=== PATIENT | male | born 1960 | race Caucasian/White ===

== ENCOUNTER 2019-09-01 12:00 | Day surgery (SDC) | payer BC, SELFPAY ==
[2019-09-01 12:52] VITALS: BP 156/92; PULSE 87; RESP 15; TEMP 36.2; O2SAT 98; BMI 25.5
[2019-09-01] MEDS: SODIUM CHLORIDE 0.9% 1,000 ML 200 ML IV (13:01)
--- NOTE | 2019-09-01 13:36 | PM.HP.1 ---
History of Present Illness History of Present Illness Date Patient Seen: 09/01/19 Time Patient Seen: 13:36 Chief complaint: [id number] SCREENING COLONOSCOPY Narrative: Patient presents for colorectal screening. They had a prior colonoscopy normal 15 years ago. On further history denies any recent gastrointestinal symptoms. No nausea, vomiting, abdominal pain, loss of appetite, unexplained weight loss, change in bowel habits, diarrhea, constipation, melena, hematochezia, or bright red blood per rectum. Patient History Surgical History History of total right knee replacement (Acute) Social History marital status: household members: spouse occupational status: employed Smoking Status: Current every day smoker alcohol intake: current substance use type: does not use Family & Social History Social History: household members spouse Tobacco & Substance use: Smoking Status Current every day smoker alcohol intake current Meds Home Medications and Allergies Home Medications Medication Instructions Recorded Confirmed Type indomethacin 25 mg capsule 25 mg PO BID 07/27/19 09/01/19 History Allergies Allergy/AdvReac Type Severity Reaction Status Date / Time No Known Drug Allergies Allergy Verified 09/01/19 12:51 Review of Systems Review of Systems ROS Unobtainable: All systems reviewed & are unremarkable except as noted in HPI and below Exam Vital Signs (past 8 hours): - 09/01/19 12:52 Temperature 97.2 F L Pulse Rate 87 Respiratory Rate 15 Blood Pressure 156/92 H Pulse Oximetry 98 Oxygen Delivery Method Room Air Narrative Exam Narrative: General-no acute distress, well nourished HEENT-moist mucous membranes, no scleral icterus Neck-supple, no lymphadenopathy Chest- non labored respirations, clear to auscultation bilaterally Cardiac-regular rate no peripheral edema Abdomen-soft, nontender, non distended Extremities-warm, well perfused Neurological-alert and oriented, no focal deficits Assessment & Plan Assessment and plan (1) Screening for colon cancer: Current visit: Yes Status: Acute Assessment & Plan narrative: The patient requires colorectal screening and colonoscopy is recommended. Technical details were discussed. Risks, benefits, alternatives explained. Risks including but not limited to myocardial infarction, aspiration, bleeding, pain, missed lesion, incomplete examination, need for further radiographic studies, colonic perforation, and need for major abdominal surgery were discussed. All questions were answered to their satisfaction, and they are in agreement with this plan.
[2019-09-01 13:59] VITALS: BP 130/91; PULSE 82; RESP 15; TEMP 36.4; O2SAT 96
[2019-09-01] MEDS: MIDAZOLAM 5 MG/5 ML VIAL IV (13:59)
[2019-09-01] MEDS: fentaNYL 250 MCG/5 ML INJ IV (13:59)
[2019-09-01 14:04] VITALS: BP 147/98; PULSE 88; RESP 16; O2SAT 97
[2019-09-01 14:10] VITALS: BP 148/92; PULSE 83; RESP 22; TEMP 36.5; O2SAT 95
--- NOTE | 2019-09-01 14:14 | PM.OP.ENDO ---
Operative Date/Time/Diagnoses Date of procedure: 09/01/19 Time of procedure: 14:14 Pre-op diagnosis: screening colonoscopy Post-op diagnosis: same Procedure & Clinicians Study performed: Colonoscopy Same procedure as scheduled: Yes Indications: 59-year-old male with previous colonoscopy 15 years ago presents for screening. Surgeon: Ramesh Snyder Procedure Notes SCOAP/Timeout: Performed Procedure in detail: Patient placed in left lateral decubitus position. Time out was performed. Procedural sedation was administered with Versed and Fentanyl. A rectal exam demonstrated no external hemorrhoids no internal masses. Colonoscopy scope was placed into the rectum and advanced through the colon to the cecum. The ileocecal valve was identified. The scope was then slowly withdrawn examining colon thoroughly in all directions. The colonoscopy was normal, there were no masses polyps colitis. The colon was notable for garcia diverticulosis. The scope was retroflexed within the rectum demonstrated grade 1 internal hemorrhoids. The rectum was desufflated and the scope removed. Patient tolerated procedure well. Scope withdrawal time: 6 Sedation minutes: 20 Findings: diverticulosis and internal hemorrhoids Impression: diverticulosis Post-procedure Recommendations: Colonscopy in 10 years Disposition: same day surgery
[2019-09-01 14:27] VITALS: BP 134/86; PULSE 88; RESP 16; TEMP 36.8; O2SAT 97
== END 2019-09-01 14:42 | disposition home or self-care (01) ==
PROVIDERS: PCP Family Medicine; Visit Provider Surgery
PROC: 0DJD8ZZ Inspection of Lower Intestinal Tract, Via Natural or Artificial Opening Endoscopic (ICD-10-PCS; CPT 45378; principal; 2019-09-01 13:45)
DX: Z12.11 Encounter for screening for malignant neoplasm of colon (principal); F17.210 Nicotine dependence, cigarettes, uncomplicated; K57.30 Diverticulosis of large intestine without perforation or abscess without bleeding; K64.0 First degree hemorrhoids
CPT/HCPCS: 45378; 99152; J2250; J3010

== ENCOUNTER → 2019-09-16 10:16 | Outpatient (CLI) | payer BC, SELFPAY ==
--- NOTE | 2019-09-16 | DI.RAD.S_ITS ---
PROCEDURE: XR HAND RT MIN 3V INDICATIONS: BI HAND PAIN X 5 YRS / POSS RHEUM ARTHRITIS TECHNIQUE: 3 views of the hand(s) acquired. COMPARISON: None. FINDINGS: Bones: No fractures or dislocations. Questionable posttraumatic deformity of the distal fifth metacarpal although technically indeterminate No marginal lucency is identified. Diffuse interphalangeal joint degeneration. First CMC and triscaphe joint degeneration , mild. Severe second MCP joint degeneration. Carpal bones are normally aligned. No suspicious bony lesions. Soft tissues: No suspicious soft tissue calcifications. IMPRESSION: Scattered degenerative changes as above. No marginal lucencies to suggest erosions identified. Dictated by: Wade Richmond M.D. on 09/16/2019 at 11:50 Approved by: Wade Richmond M.D. on 09/16/2019 at 11:53
--- NOTE | 2019-09-16 | DI.RAD.S_ITS ---
PROCEDURE: XR HAND LT MIN 3V INDICATIONS: BI HAND PAIN X 5 YRS / POSS RHEUM ARTHRITIS TECHNIQUE: 3 views of the hand(s) acquired. COMPARISON: [facility], CR, XR HAND RT MIN 3V, 09/16/2019, 10:18. FINDINGS: Bones: No acute fractures or dislocations. Chronic appearing posterior mild deformity of the third and fourth metacarpals. Diffuse interphalangeal joint degeneration. Severe second MCP osteoarthritis. First CMC and triscaphe joint degeneration , moderate-severe. Questionable hooklike osteophyte appearance of the second and third metacarpal heads. Periarticular calcification at the third MCP joint. Chronic appearing ulnar styloid fracture fragment versus loose body Carpal bones are normally aligned. No suspicious bony lesions. Soft tissues: No suspicious soft tissue calcifications. 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 No marginal lucencies to suggest erosions identified. Questionable hooklike osteophytes at the second and third MCP joints raising the possibility of deposition arthropathy Small ossicle at the tip of the ulnar styloid as above. Dictated by: Wade Richmond M.D. on 09/16/2019 at 11:53 Approved by: aWde Richmond M.D. on 09/16/2019 at 11:55
== END ==
PROVIDERS: PCP Student in an Organized Health Care Education/Training Program; Visit Provider Student in an Organized Health Care Education/Training Program
DX: M79.642 Pain in left hand (principal); M79.641 Pain in right hand; M19.042 Primary osteoarthritis, left hand; M19.041 Primary osteoarthritis, right hand; M18.0 Bilateral primary osteoarthritis of first carpometacarpal joints
CPT/HCPCS: 73130

== ENCOUNTER → 2019-10-24 13:12 | Outpatient (CLI) | payer BC, SELFPAY ==
--- NOTE | 2019-10-24 13:45 | DI.CT.S_ITS ---
PROCEDURE: CT ABDOMEN W CON INDICATIONS: verify blood flow in non reducible hernia TECHNIQUE: After the administration of oral and intravenous contrast, 5 mm thick sections acquired from the diaphragms to the iliac crests. 5 mm thick coronal and sagittal reformats were acquired. For radiation dose reduction, the following was used: automated exposure control, adjustment of mA and/or kV according to patient size. COMPARISON: None. FINDINGS: Image quality: Excellent. Lung bases: Lung bases are clear. Heart size is normal. Solid organs: Liver is normal in size. Probable hepatic steatosis. Gallbladder is unremarkable. Biliary system is non dilated. Pancreas enhances normally. Spleen is normal in size and enhancement. No adrenal nodules. Kidneys are normal in size, without hydronephrosis. Peritoneum and bowel: Contrast enhanced bowel loops appear normal in caliber. Diverticulosis. Appendix is probably visualized and normal in caliber. No free fluid or air. Nodes and vessels: No retroperitoneal or mesenteric adenopathy by size criteria. Aorta and inferior vena cava are normal in size. Bones: No suspicious bony lesions. Moderate degenerative change at L3-L4 with loss of intervertebral disc space height. No vertebral body compression fractures. Miscellaneous: Fat-containing periumbilical hernia. The hernia neck measures approximately 1.8 cm. There is mild stranding in the hernia sac. No comparison available. No fluid. IMPRESSION: Moderate-sized fat-containing periumbilical hernia. No fluid collection. Mild nonspecific stranding in the hernia sac. Acute inflammatory change and fat necrosis are felt to be less likely. Comparison with prior cross sectional imaging of the hernia would be helpful to evaluate for change. Dictated by: Daron Almeida M.D. on 10/24/2019 at 14:10 Approved by: Daron Almeida M.D. on 10/24/2019 at 14:18
== END ==
PROVIDERS: PCP Student in an Organized Health Care Education/Training Program; Visit Provider Student in an Organized Health Care Education/Training Program
DX: K42.0 Umbilical hernia with obstruction, without gangrene (principal)
CPT/HCPCS: 74160; Q9967

== ENCOUNTER → 2021-02-15 08:30 | Outpatient (CLI) | payer BC, SELFPAY ==
[2021-02-15] MEDS: COVID-19 VACC #1, MRNA(MOD) 100 MCG/0.5 ML VIAL IM (08:36)
== END ==
PROVIDERS: PCP Student in an Organized Health Care Education/Training Program; Visit Provider Internal Medicine
DX: Z23 Encounter for immunization (principal)
CPT/HCPCS: 0011A; 91301

== ENCOUNTER → 2021-03-15 08:21 | Outpatient (CLI) | payer BC, SELFPAY ==
[2021-03-15] MEDS: COVID-19 VACC #2, MRNA(MOD) 100 MCG/0.5 ML VIAL IM (08:26)
== END ==
PROVIDERS: PCP Student in an Organized Health Care Education/Training Program; Visit Provider Internal Medicine
DX: Z23 Encounter for immunization (principal)
CPT/HCPCS: 0012A; 91301

== ENCOUNTER → 2023-02-13 15:05 | Outpatient (CLI) | payer BC, SELFPAY ==
--- NOTE | 2023-02-13 | DI.RAD.S_ITS ---
PROCEDURE: XR HAND LT MIN 3V INDICATIONS: PAIN IN LEFT HAND TECHNIQUE: 3 views of the hand(s) acquired. COMPARISON: [facility], CR, XR HAND LT MIN 3V, 09/16/2019, 10:20. [facility], CR, XR HAND RT MIN 3V, 09/16/2019, 10:18. FINDINGS: Bones: No fractures or dislocations. Carpal bones are normally aligned. No suspicious bony lesions. Interphalangeal joint space narrowing with associated osteophytosis. First CMC joint space narrowing with osteophytosis, subchondral sclerosis. Soft tissues: No suspicious soft tissue calcifications. IMPRESSION: 1st CMC and interphalangeal osteoarthritis, within normal limits for age. Dictated by: Santy Denis M.D. on 02/13/2023 at 15:59 Approved by: Santy Denis M.D. on 02/13/2023 at 16:00
== END ==
PROVIDERS: PCP Family Medicine; Referring Provider Family Medicine; Visit Provider Family Medicine
DX: M19.042 Primary osteoarthritis, left hand (principal); M79.642 Pain in left hand
CPT/HCPCS: 73130

== ENCOUNTER → 2023-07-17 16:18 | Outpatient (CLI) | payer BC, SELFPAY ==
--- NOTE | 2023-07-17 16:20 | DI.RAD.S_ITS ---
PROCEDURE: XR HIP W PEL IF DONE RT 2V INDICATIONS: R hip pain TECHNIQUE: AP pelvis with lateral view(s) of the right hip(s). COMPARISON: None. FINDINGS: Bones: No fractures or dislocations. Moderate bilateral hip joint osteoarthritic changes are seen with superior joint space narrowing, subchondral sclerosis and marginal osteophyte formation. No evidence of avascular necrosis of femoral head. Pelvic ring appears intact. No suspicious bony lesions. Soft tissues: The visualized bowel gas pattern is normal. No suspicious soft tissue calcifications. IMPRESSION: Moderate bilateral hip joint osteoarthritis slightly worse on the right side. No fracture or dislocation. No evidence of avascular necrosis. Dictated by: Nikhil Wagner M.D. on 07/17/2023 at 17:06 Approved by: Nikhil Wagner M.D. on 07/17/2023 at 17:07
== END ==
PROVIDERS: PCP Family Medicine; Referring Provider Family Medicine; Visit Provider Family Medicine
DX: M16.0 Bilateral primary osteoarthritis of hip (principal); M25.551 Pain in right hip
CPT/HCPCS: 73502

== ENCOUNTER → 2023-12-22 16:43 | Outpatient (CLI) | payer BC, SELFPAY ==
--- NOTE | 2023-12-22 | DI.US.S_ITS ---
PROCEDURE: US EXTREMITY NONVASC LOWER LT INDICATIONS: LEFT POPLITEAL FOSSA LUMP WITH PAIN TECHNIQUE: Real-time scanning was performed of the left knee, with image documentation. COMPARISON: None. FINDINGS: Focused ultrasound examination of posterior left knee shows no soft tissue mass or fluid collection. The visualized popliteal vein is patent and show no intraluminal filling defect. IMPRESSION: No abnormality is seen in left popliteal fossa. Dictated by: Nikhil Wagner M.D. on 12/22/2023 at 17:14 Approved by: Nikhil Wagner M.D. on 12/22/2023 at 17:15
== END ==
LOC: US 16:43
PROVIDERS: PCP Family Medicine; Referring Provider Family Medicine; Visit Provider Family Medicine
DX: M25.562 Pain in left knee (principal); R22.9 Localized swelling, mass and lump, unspecified
CPT/HCPCS: 76882

== ENCOUNTER → 2024-01-08 19:26 | Outpatient (CLI) | payer BC, SELFPAY ==
--- NOTE | 2024-01-08 | DI.MRI.S_ITS ---
PROCEDURE: MR KNEE LT WO CON INDICATIONS: left knee pain TECHNIQUE: Noncontrast sagittal PD fast spin echo and T2 fast spin echo with fat saturation, sagittal 3-D FLASH with fat saturation; coronal T1 spin echo and PD fast spin echo with fat saturation, and axial PD fast spin echo with fat saturation through the knee. COMPARISON: None. FINDINGS: Image quality: Diagnostic Menisci: Medial: Free edge truncation of the medial meniscus, and a complex tear extending from the free edge nerve periphery is seen, starting from the anterior horn, also involving the body. There is partial extrusion. Lateral: horizontal tear primary involves the anterior horn Cruciate ligaments: T2 signal abnormality of the ACL likely related to mucoid degeneration. The PCL is intact. Medial structures: MCL: Mild periligamentous edema Pes anserine tendons: [id number] bursitis Semimembranosus: Egkr-xi-[id number] insertional tendinopathy Lateral structures: LCL: [id number]-mk-[id number] periligamentous edema and proximal signal abnormality. Biceps femoris: Mild insertional tendinopathy and possible partial thickness tear IT band: Intact Popliteus tendon: Mild insertional tendinopathy. Tenosynovitis in the mid tendon. Anterior structures: Extensor mechanism: Intact Fat pads: Mild prepatellar and Hoffa's fat pad edema Medial retinaculum: Intact. Trochlea: Unremarkable morphology. Bone and joint: Bones: Possible nondisplaced fracture of the fibular head, with mild edema Cartilage: Full-thickness cartilage loss of most of the medial compartment, with subchondral edema involving the femoral condyle and tibial plateau. Suspected subchondral geode is seen in the lateral femoral condyle. Moderate heterogeneity also seen in the lateral compartment. Full-thickness fissuring with subchondral edema is seen in the lateral facet of the patella. Moderate heterogeneity overall in the patellofemoral compartment. Multifocal osteophytes. Joint space: Mild joint effusion and evidence of synovitis. Murry's cyst: Moderate Murry's cyst Soft tissues: Diffuse mild soft tissue swelling. There are ganglion cysts adjacent to the posterior lateral capsule. IMPRESSION: Complex tear of the medial meniscus. Horizontal lateral meniscus tear. Suspected mucoid degeneration of the ACL and possible reactive edema versus sprains of the LCL and MCL. No full-thickness defect of the cruciate or collateral ligaments. Moderate to severe degenerative changes, particularly the medial compartment. Possible nondisplaced fracture of the fibular head, may be subacute with mild edema. Mild insertional tendinopathy and possible partial tear of the biceps femoris. Insertional tendinopathy also seen in the popliteus with tenosynovitis in the mid tendon. Mild Hoffa's fat pad edema. Mild joint effusion and evidence of synovitis. Moderate Murry's cyst Dictated by: Rodrigo Woo M.D. on 01/11/2024 at 9:13 Approved by: Rodrigo Woo M.D. on 01/11/2024 at 9:19
== END ==
LOC: MRI 19:27
PROVIDERS: PCP Family Medicine; Referring Provider Family Medicine; Visit Provider Family Medicine
DX: S83.232A Complex tear of medial meniscus, current injury, left knee, initial encounter (principal); S83.282A Other tear of lateral meniscus, current injury, left knee, initial encounter; M65.862 Other synovitis and tenosynovitis, left lower leg; M25.462 Effusion, left knee; M71.22 Synovial cyst of popliteal space [Baker], left knee; R60.0 Localized edema; M25.562 Pain in left knee
CPT/HCPCS: 73721

== ENCOUNTER → 2024-03-21 16:04 | Outpatient (CLI) | payer BC, SELFPAY ==
--- NOTE | 2024-03-21 16:05 | DI.MRI.S_ITS ---
PROCEDURE: MR SHOULDER RT WO CON INDICATIONS: Pain in right shoulder TECHNIQUE: Noncontrast oblique coronal T2 fast spin echo with fat saturation, oblique sagittal T1 spin echo and T2 fast spin echo with fat saturation, axial T1 spin echo and T2 fast spin echo with fat saturation through the shoulder. COMPARISON: None. FINDINGS: Image quality: Excellent. Rotator cuff: There is full-thickness tear of the subscapularis tendon. Superimposed moderate subscapularis tendinosis. There is mild subscapularis muscle atrophy. There is intermediate grade partial-thickness tear of the supraspinatus tendon from the musculotendinous junction to the footprint. There is moderate supraspinatus tendinosis. No supraspinatus muscle atrophy. Mild infraspinatus tendinosis is present. Bones and bursae: No bone marrow contusions or fractures. There is mild acromioclavicular and moderate glenohumeral joint degeneration. The acromion demonstrates conventional anatomy, without an os acromiale. Small glenohumeral joint effusion. Capsule and soft tissues: There is SLAP lesion in the superior labrum involving the biceps anchor. There are also posterior superior labral tear, anterior labral tear and inferior labral tear. There are several paralabral cysts adjacent to the posterior superior labrum and inferior labrum. The long head of the biceps tendon demonstrates normal location and morphology. The rotator interval appears normal, without fibrosis. The coracohumeral ligament is normal in thickness. IMPRESSION: 1. Full-thickness tear of the subscapularis tendon. There is moderate subscapularis tendinosis. There is mild subscapularis muscle atrophy. 2. Intermediate grade partial-thickness tear of the supraspinatus tendon. There is moderate supraspinatus tendinosis. No supraspinatus muscle atrophy. 3. Mild infraspinatus tendinosis. 4. SLAP tear of the superior labrum involving the biceps anchor. 5. Posterior superior, anterior and inferior labral tear. Paralabral cysts are noted. 6. Moderate glenohumeral arthrosis and mild acromioclavicular arthrosis. 7. Small glenohumeral joint effusion. Dictated by: Isabel Graves M.D. on 03/22/2024 at 8:52 Approved by: Isabel Graves M.D. on 03/22/2024 at 10:08
== END ==
LOC: MRI 16:04
PROVIDERS: PCP Family Medicine; Referring Provider Family Medicine; Visit Provider Family Medicine
DX: M75.111 Incomplete rotator cuff tear or rupture of right shoulder, not specified as traumatic (principal); S43.431A Superior glenoid labrum lesion of right shoulder, initial encounter; M19.011 Primary osteoarthritis, right shoulder; M25.411 Effusion, right shoulder; M25.511 Pain in right shoulder
CPT/HCPCS: 73221

== ENCOUNTER → 2024-06-20 09:20 | Outpatient (CLI) | payer BC, OTHER, SELFPAY ==
--- NOTE | 2024-06-20 09:36 | EKG_ITS ---
[place] [id number] [address] [place] [id number] Test Date: 2024-06-20 Pat Name: Mayank Gracie Department: [facility] Room: Gender: Male Clerk Stenographer: JENNIFER : 1960 Requested By: Order Number: [id number] Reading MD: Mayank England MD Measurements Intervals [place] Rate: 75 P: 34 GA: 212 QRS: 9 QRSD: 86 T: 40 QT: 356 QTc: 397 Interpretive Statements Sinus rhythm with 1st degree AV block Electronically Signed On 06-20-2024 12:03:02 PDT by Mayank England MD
[2024-06-20 10:46] LABS: Add Manual Diff / Slide Review NO; Basophils Absolute Auto 0 /uL (0-100); Basophils Percent Auto 0.9 % (0-2); Eosinophils Absolute Auto 100 /uL (0-450); Eosinophils Percent Auto 1.6 % (2-4); Hematocrit 38.3 % (41-53); Hemoglobin 13.1 g/dL (13.5-17.5); Lymphocytes Absolute Auto 1000 /uL (1100-4500); Lymphocytes Percent Auto 17.7 % (25-40); Mean Corpuscular HGB Conc 34.4 % (30-36); Mean Corpuscular Volume 90.2 fL (80-100); Monocytes Absolute Auto 300 /uL (0-900); Monocytes Percent Auto 5.5 % (3-14); Neutrophils Absolute Auto 4200 /uL (1500-7000); Neutrophils Percent Auto 74.3 % (50-75); Platelet Count 129 X10^3/uL (150-400); Red Blood Cell Count 4.24 X10^6/uL (4.5-5.9); White Blood Cell Count 5.6 X10^3/uL (4.5-11.0)
[2024-06-20 11:05] LABS: BUN Creatinine Ratio 16.2 (6-22); Blood Urea Nitrogen 17 mg/dL (9-20); Calcium 9.4 mg/dL (8.4-10.2); Carbon Dioxide 25 mmol/L (22-32); Chloride 106 mmol/L (98-107); Estimated Glomerular Filt Rate > 60 mL/min (>60); Glucose 96 mg/dL (80-110); HEMOLYSIS < 15 (0-50); Sodium 137 mmol/L (137-145)
== END ==
LOC: RESP 09:22
PROVIDERS: PCP Family Medicine; Referring Provider Orthopaedic Surgery Foot and Ankle Surgery; Visit Provider Orthopaedic Surgery Foot and Ankle Surgery
DX: Z01.818 Encounter for other preprocedural examination (principal); Z01.812 Encounter for preprocedural laboratory examination; R73.9 Hyperglycemia, unspecified
CPT/HCPCS: 36415; 80048; 83036; 85025; 93005; 93010

== ENCOUNTER → 2025-05-10 15:29 | Outpatient (CLI) | payer BC, OTHER, SELFPAY ==
--- NOTE | 2025-05-10 15:32 | DI.RAD.S_ITS ---
PROCEDURE: XR CHEST 2V INDICATIONS: ROUTINE TECHNIQUE: 2 views of the chest were acquired. COMPARISON: None. FINDINGS: Surgical changes and devices: None. Lungs and pleura: Lungs are clear. No pleural effusions or pneumothorax. Mediastinum: Mediastinal contours are normal. Heart size is normal. Bones and chest wall: No suspicious bony abnormalities. Soft tissues appear unremarkable. IMPRESSION: No acute cardiopulmonary abnormality is seen. Approved by: Remi Garcia M.D. on 05/11/2025 at 18:06
== END ==
PROVIDERS: PCP Family Medicine; Referring Provider Family Medicine; Visit Provider Family Medicine
DX: R05.1 Acute cough (principal); R50.9 Fever, unspecified
CPT/HCPCS: 71046